=== PATIENT | male | born 1960 | race Caucasian/White ===

== ENCOUNTER 2018-01-06 09:05 | Outpatient (CLI) | payer OTHER ==
[~2018-01-06] VITALS: Ht 177.8 cm; Wt 65.8 kg
[2018-01-06] VITALS (7 sets, daily range): BP systolic 113–131; BP diastolic 78–787
[~2018-01-06 09:05] MED LIST: CHILDREN'S ASPI81 M1 PO; SIMVASTATIN40 MG PO; TOPROL XL25 MG PO
[2018-01-06 10:07] LABS: HEMOGLOBIN 12.6 gm/dL (14.0-18.0); MCV 100.1 fL (80.0-100.0); MPV 8.8 fl. (7.2-11.1); RBC 3.7 mil/uL (4.50-6.00); RDW-CV 14.2 % (10.5-14.5); WBC 6.5 thou/uL (4.0-11.0)
[2018-01-06 10:16] LABS: APTT 23.1 Seconds (25.0-31.3); PROTIME 9.4 Seconds (9.20-11.50)
[2018-01-06 10:17] LABS: ANION GAP 7 mmol/L (7-16); BUN 24 mg/dL (7-18); CALCIUM 9.1 mg/dL (8.5-10.1); CHLORIDE 104 mmol/L (98-107); CO2 29 mmol/L (21-32); CREATININE 0.9 mg/dL (0.6-1.3); GLUCOSE 88 mg/dL (70-99); SODIUM 140 mmol/L (136-145)
[2018-01-06 10:24] LABS: ALBUMIN 3.5 g/dL (3.4-5.0); ALKALINE PHOSPHATASE 40 U/L (46-116); CHOLESTEROL 208 mg/dL (<200); HDL CHOLESTEROL 80 mg/dL (>40); LDL CHOLESTEROL 88 mg/dL (<100); SGOT 24 U/L (15-37); SGPT 24 U/L (30-65); TC:HDL 2.6 Ratio (Not establshd); TOTAL BILIRUBIN 0.2 mg/dL (<0.1-1.0); TOTAL PROTEIN 7.1 g/dL (6.4-8.2); TRIGLYCERIDE 202 mg/dL (<150); VLDL 40 mg/dL (<40)
[2018-01-06 10:26] LABS: SERUM ASSESSMENT Clear
--- NOTE | 2018-01-06 13:46 | CARD ---
[address] [address] CARDIAC CATH REPORT Name: JASE SALVADOR Room: [address] M.R.#: [id number] Admission: 01/06/18 Attend Phys: Naun Cameron MD, Discharge: Date of : 62 Report #: [id number] THIS REPORT FOR: //name// APPROVED REPORT Study performed: 01/06/2018 11:07:48 Patient Details Patient Status: Out-Patient Room #: The patient is a 57 year-old male Event Personnel Naun Cameron Medicare Biller, Tammy Gallo RN RN, Heaven Sandoval RTR Monitor, Nadya Estrada Procedures Performed Art Access - R femoral artery* Left Heart Cath w/LT VGram [id number] LHCLV Hemostasis w/ Mynx Indication Chest pain Risk Factors Hypercholesterolemia, Hypertension Previous Procedures/Diagnoses Previous PCI Procedure Narrative The patient was brought electively to the Cardiac Catheterization Laboratory and was prepped and draped in a sterile manner. The right femoral was infiltrated with 1% Lidocaine subcutaneous anesthesia. A [place] 6 FR sheath was inserted into the right femoral artery. Coronary angiography was performed using coronary diagnostic catheters. The right coronary system was accessed and visualized with a 6FR 3DRC catheter. The left coronary system was accessed and visualized with a 6FR JL4 catheter. The left ventricle was accessed and visualized with a 6FR Pigtail catheter. Left ventriculogram was performed in SHAHID projection. Pre-demployment femoral angiogram was performed . Closure device was deployed with a 6 Fr MynxGrip 6/7F. The patient tolerated the procedure well and there were no complications associated with the procedure. Intraoperative Conscious Sedation Sedation start time: 11:25 Case end Time: [place] [address] CARDIAC CATH REPORT Name: JASE SALVADOR Room: [address]#: [id number] Admission: 01/06/18 Attend Phys: Naun Cameron MD, Discharge: Date of : 62 Report #: [id number] 11:50 Fentanyl 100 mcg Versed 4 mg Fluoro Time: 2.8 minutes Dose: DAP 34116 cGycm2 494.85 mGy Contrast Type and Amount: Visipaque 145 ml Coronary Angiography The patient's coronary anatomy is right dominant. Diagnostic Cath Left Main 0 Percent narrowing LAD 30% proximal LAD narrowing with 20% mid vessel narrowing with widely patent mid LAD stent Circumflex 0% narrowing Right Coronary Large dominant vessel with 30% proximal and distal narrowing with widely patent distal right coronary stent Left Ventriculography The left ventricle is normal in size with normal contractility. The left ventricular ejection fraction is estimated to be 60%. Left ventricular wall motion abnormalities are not present. There is no mitral insufficiency. Hemodynamics The aortic pressure is 120/65 mmHg with a mean of 89 mmHg. The left ventricular pressure is 122/0 mmHg with a mean of mmHg. The left ventricular end diastolic pressure is 11 mmHg. There was no gradient across the aortic valve upon pullback. Conclusion #1 Modest coronary artery disease characterized by the following: A 30% proximal LAD narrowing with 20% mid vessel narrowing and widely patent mid LAD stent B prominent though nondominant circumflex which appeared normal C large dominant right coronary artery with 30% proximal and distal narrowing with widely patent distal right coronary stent #2 normal left ventricular systolic function, estimated ejection fraction being 60% #3 normal left-[place] [address] CARDIAC CATH REPORT Name: JASE SALVADOR Room: [address]#: [id number] Admission: 01/06/18 Attend Phys: Naun Cameron MD, Discharge: Date of : 62 Report #: [id number] Recommendations Cardiac Risk Reduction Program Diagnostic Cath Approved by: Naun Cameron MD Date/Time: 01/06/18 at 1344 hrs. <ELECTRONICALLY SIGNED> By: Naun Cameron MD, [facility] 01/06/18 1345 1345 1345Naun Cameron MD, FACC /INF
--- NOTE | 2018-01-06 14:35 | EKG ---
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
[2018-01-06] MEDS ORDERED: NITROGLYCERIN0.4 MG SUBLING (15:44)
--- NOTE | 2018-01-07 16:13 | NUR ---
Attempted to talk with patient in follow up post cath. No answer, message left with return phone #.
== END 2018-01-06 13:45 | disposition home or self-care (01) ==
LOC: M.CL 09:05 → M.TBA-CV 09:05 → M.CL 10:30 → M.TBA-CV 12:07 → M.CL 12:07
PROVIDERS: Internal Medicine
DX: I25.10 Atherosclerotic heart disease of native coronary artery without angina pectoris (principal); I10 Essential (primary) hypertension; E78.00 Pure hypercholesterolemia, unspecified; Z95.5 Presence of coronary angioplasty implant and graft; Z87.442 Personal history of urinary calculi; Z98.890 Other specified postprocedural states; Z88.8 Allergy status to other drugs, medicaments and biological substances; Z79.899 Other long term (current) drug therapy; Z79.82 Long term (current) use of aspirin

== ENCOUNTER 2020-03-24 12:38 | Emergency (ER) | payer OTHER ==
[~2020-03-24] VITALS: Ht 177.8 cm; Wt 72.6 kg
[~2020-03-24 12:38] MED LIST changes: +NITROGLYCERIN0.4 MG SUBLING
[2020-03-24 12:55] LABS: ABSOLUTE BASOPHILS 0.1 thou/uL (0.0-0.2); ABSOLUTE EOSINOPHILS 0.1 thou/uL (0.0-0.7); ABSOLUTE LYMPHOCYTES 2.4 thou/uL (0.8-5.3); ABSOLUTE MONOCYTES 0.7 thou/uL (0.0-1.2); ABSOLUTE NEUTROPHILS 3.7 thou/uL (1.6-8.1); BASOPHILS 0.8 %; EOSINOPHILS 1.1 %; HEMATOCRIT 43.6 % (42.0-52.0); HEMOGLOBIN 14.9 gm/dL (14.0-18.0); LYMPHOCYTES 34.6 %; MCH 33.4 pg (26.0-34.0); MCHC 34.2 g/dL (28.0-37.0); MCV 97.9 fL (80.0-100.0); MONOCYTES 10.2 %; NUCLEATED RBCS 0 /100WBC; PLATELET COUNT* 257 thou/uL (150-400); POLYS 53.3 %; RBC 4.45 mil/uL (4.50-6.00); RDW-CV 13.9 % (10.5-14.5); WBC 6.9 thou/uL (4.0-11.0)
[2020-03-24 13:11] LABS: APTT 22.9 Seconds (25.0-31.3); CALCIUM 9.3 mg/dL (8.5-10.1); CREATININE 1.1 mg/dL (0.6-1.3); INR 0.9; POTASSIUM 4.1 mmol/L (3.5-5.1); PROTIME 9.7 Seconds (9.20-11.50)
[2020-03-24 13:19] LABS: ALBUMIN 4.1 g/dL (3.4-5.0); MAGNESIUM 1.8 mg/dL (1.8-2.4); TOTAL BILIRUBIN 0.3 mg/dL (<0.1-1.0); TOTAL PROTEIN 8.3 g/dL (6.4-8.2)
[2020-03-24 13:40] LABS: CK-MB MASS 1.2 ng/mL (<0.5-3.6)
[2020-03-24 15:14] VITALS: BP 165/79
--- NOTE | 2020-03-24 17:39 | EKG ---
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1960 Requested By: Scotty Corley Order Number: [id number] MD: Niranjan Coronel Measurements Intervals [place] Rate: 75 P: 72 UT: 146 QRS: 63 QRSD: 95 T: 56 QT: 392 QTc: 438 Interpretive Statements Sinus rhythm Baseline wander in lead(s) V1 Compared to ECG 01/06/2018 10:07:33 No significant changes Electronically Signed On 03-24-2020 17:39:30 CDT by Niranjan Coronel [email or web address] <ELECTRONICALLY SIGNED> By: Niranjan Coronel MD, FAC 03/24/20 1739 1243 1243 Niranjan Coronel MD, [facility] /EPI
== END 2020-03-24 15:15 | disposition home or self-care (01) ==
LOC: M.ERS 12:38
PROVIDERS: Family Medicine
DX: R07.89 Other chest pain (principal); I10 Essential (primary) hypertension; Z87.442 Personal history of urinary calculi; Z95.5 Presence of coronary angioplasty implant and graft; Z88.6 Allergy status to analgesic agent